=== PATIENT | female | born 1945 | race Caucasian/White ===

== ENCOUNTER 2024-04-28 18:27 | Inpatient (IN) ==
[2024-04-28 20:21] LABS: Urine Appearance Clear; Urine Bacteria Absent /HPF (Absent); Urine Bilirubin Negative (Negative); Urine Blood Trace (Negative); Urine Color Yellow; Urine Glucose 4+ (>=1000 mg/dL) (Negative); Urine Ketones 1+ (Negative); Urine Nitrite Negative (Negative); Urine Protein 1+ (>=30 mg/dL) (Negative); Urine Red Blood Cell Trace(0-2/hpf) /HPF (0-Trace); Urine Squamous Epithelial Cell Present /HPF (Absent); Urine Urobilinogen Negative (Negative); Urine White Blood Cell 3+(>20/hpf) /HPF (0-Trace)
[2024-04-28 21:47] LABS: Hematocrit 38.1 % (35-45); Hemoglobin 12.7 g/dL (11.5-14.3); Mean Corpuscular Hemoglobin 29.3 pg (27-33); Mean Corpuscular Hgb Conc 33.3 g/dL (31-36); Mean Corpuscular Volume 88.3 fL (80-97); Mean Platelet Volume 8.6 fL (7.5-11.2); Platelet Count 299 10^3/uL (150-450); Red Blood Count 4.32 10^6/uL (3.63-4.92); Red Cell Distribution Width 13.2 % (12-17)
[2024-04-28 21:58] LABS: INR 1.95 (0.85-1.14)
[2024-04-28 22:16] LABS: Albumin 3.8 g/dL (3.2-5.2); Albumin/Globulin Ratio 1.4 (1-3); Creatinine, Serum 0.79 mg/dL (0.51-0.95); Globulin 2.7 g/dL (2-4); Magnesium 2.2 mg/dL (1.9-2.7); Potassium 4.1 mmol/L (3.5-5.0); Total Bilirubin 0.8 mg/dL (0.2-1.0); Total Protein 6.5 g/dL (6.4-8.9); eGFR CKD-EPI 76.5 (>60)
[2024-04-28 22:26] LABS: ABS Basophils 0.1 10^3/uL (0.0-0.1); ABS Lymphocytes 0.9 10^3/uL (1.0-4.8); ABS Monocytes 1.2 10^3/uL (0.0-0.9); ABS Neutrophils 12.7 10^3/uL (1.5-7.6); ABS Nucleated RBC 0.01 10^3/ul; Eosinophil % 0.3 %; Lymphocyte % 5.9 %; Nucleated Red Blood Cells % 0.1 %/100WBC (0.0-0.8); RBC Morphology Normal (Normal)
[2024-04-28 22:30] LABS: TSH Ultra Thyroid Stim Horm 5.49 mcIU/mL (0.34-5.60)
[2024-04-28] MEDS: Lactated Ringers 1000 ml BAG 1,000 ML IV ONE (22:30)
[2024-04-28 22:49] LABS: C Reactive Protein 110.09 mg/L (<8.01)
[2024-04-28 23:27] LABS: High Sensitivity Troponin 1 Hr 9 pg/mL (<15)
[2024-04-28] MEDS: Iodixanol (CONTRAST) 320 MG/ML 100 ML SDV IV ONE (23:46)
[2024-04-29] MEDS: cefTRIAXone 1 gm/50 mL D5W 1 GM/50 ML BAG IV ONE (00:59)
[2024-04-29] MEDS: Furosemide 40 mg/4 ml IV VIAL IV SLOW PU ONE ×2 (03:21→16:43)
[2024-04-29 05:23] LABS: Folate 10.79 ng/mL (5.90-24.80)
[2024-04-29 06:20] LABS: Hematocrit 36.1 % (35-45); Mean Corpuscular Hemoglobin 29.2 pg (27-33); Mean Corpuscular Hgb Conc 33.2 g/dL (31-36); Mean Corpuscular Volume 88.1 fL (80-97); Mean Platelet Volume 8.6 fL (7.5-11.2); Platelet Count 290 10^3/uL (150-450); Red Cell Distribution Width 13.2 % (12-17); White Blood Count 13.4 10^3/uL (3.8-11.8)
[2024-04-29 07:06] LABS: Albumin 3.5 g/dL (3.2-5.2); Albumin/Globulin Ratio 1.4 (1-3); Calcium 8.5 mg/dL (8.6-10.3); Creatinine, Serum 0.71 mg/dL (0.51-0.95); Globulin 2.5 g/dL (2-4); Magnesium 1.9 mg/dL (1.9-2.7); Potassium 3.7 mmol/L (3.5-5.0); Total Bilirubin 0.6 mg/dL (0.2-1.0)
[2024-04-29 07:21] LABS: ABS Basophils 0.1 10^3/uL (0.0-0.1); ABS Eosinophils 0.1 10^3/uL (0.0-0.5); ABS Monocytes 1.3 10^3/uL (0.0-0.9); ABS Neutrophils 10.9 10^3/uL (1.5-7.6); ABS Nucleated RBC 0.01 10^3/ul; Eosinophil % 0.6 %; Lymphocyte % 7.8 %; Nucleated Red Blood Cells % 0.1 %/100WBC (0.0-0.8)
[2024-04-29] MEDS: Metoprolol Tartrate 5 mg VIAL 5 ml VIAL (1 mg/ml) IV ONE (08:22)
[2024-04-29] MEDS: Aspirin EC 81 mg TAB.EC (enteric coated) PO SCH (08:25)
[2024-04-29] MEDS: Cholecalciferol (VIT D3) 1,000 unit TAB PO SCH (08:27)
[2024-04-29] MEDS: Digoxin IV 0.5 MG/2 ML AMP (0.25 MG/ML) IV SLOW PU ONE (09:47)
[2024-04-29] MEDS ORDERED: Fluticasone NASAL SPRAY 50MCG 16 gm SPRAY BTL BOTH NARES PRN (11:30)
[2024-04-29] MEDS: Magnesium Sulfate 2 gm BAG 2 GM/50 ML BAG IVPB ONE (13:51)
[2024-04-29] MEDS: KCL 10 MEQ/50 ML IVPREMIX 10 MEQ/50 ML BAG IV SCH (13:52)
[2024-04-29] MEDS ORDERED: Sulfur Hexaflouride MICROSPHR 25 MG VIAL ONE (13:54)
[2024-04-29] MEDS: Sulfur Hexaflouride MICROSPHR 25 MG VIAL IV PRN (14:07)
[2024-04-29] MEDS: Enoxaparin 80 MG/0.8 ML SYR SUBCUT SCH (15:43)
[2024-04-29] MEDS: cefTRIAXone 1 gm/50 mL D5W 1 GM/50 ML BAG IV SCH (21:53)
[2024-04-30] MEDS ORDERED: cefTRIAXone 1 gm/50 mL D5W 1 GM/50 ML BAG IV SCH (01:00)
[2024-04-30 05:44] LABS: Hematocrit 32.6 % (35-45); Hemoglobin 11.1 g/dL (11.5-14.3); Mean Corpuscular Hemoglobin 29.9 pg (27-33); Mean Corpuscular Hgb Conc 34.2 g/dL (31-36); Mean Corpuscular Volume 87.5 fL (80-97); Mean Platelet Volume 8.7 fL (7.5-11.2); Platelet Count 256 10^3/uL (150-450); Red Blood Count 3.72 10^6/uL (3.63-4.92); Red Cell Distribution Width 13.2 % (12-17); White Blood Count 13.4 10^3/uL (3.8-11.8)
[2024-04-30 06:39] LABS: Calcium 8.4 mg/dL (8.6-10.3); Creatinine, Serum 0.9 mg/dL (0.51-0.95); Magnesium 2.5 mg/dL (1.9-2.7); Potassium 4.8 mmol/L (3.5-5.0); eGFR CKD-EPI 65.4 (>60)
[2024-04-30 07:15] LABS: ABS Neutrophils 11.4 10^3/uL (1.5-7.6); ABS Nucleated RBC 0.01 10^3/ul; Lymphocyte % 7.6 %
[2024-04-30] MEDS: Albuterol HFA INHALER 8 gm MDI INH PRN (08:26)
[2024-04-30] MEDS: Furosemide 40 mg/4 ml IV VIAL IV ONE (13:15)
[2024-04-30] MEDS: Metoprolol Tartrate 5 mg VIAL 5 ml VIAL (1 mg/ml) IV PRN (16:56)
[2024-04-30] MEDS: Amiodarone 400 mg TAB PO SCH (21:48)
[2024-05-01] MEDS: Enoxaparin 80 MG/0.8 ML SYR SUBCUT SCH (06:05)
[2024-05-01 07:01] LABS: Hematocrit 33.6 % (35-45); Hemoglobin 11.5 g/dL (11.5-14.3); Mean Corpuscular Hemoglobin 30.1 pg (27-33); Mean Corpuscular Hgb Conc 34.2 g/dL (31-36); Mean Corpuscular Volume 88.1 fL (80-97); Mean Platelet Volume 8.6 fL (7.5-11.2); Platelet Count 267 10^3/uL (150-450); Red Blood Count 3.82 10^6/uL (3.63-4.92); Red Cell Distribution Width 13.5 % (12-17); White Blood Count 18.7 10^3/uL (3.8-11.8)
[2024-05-01 07:15] LABS: Albumin 3.6 g/dL (3.2-5.2); Albumin/Globulin Ratio 1.4 (1-3); Calcium 8.7 mg/dL (8.6-10.3); Creatinine, Serum 1.11 mg/dL (0.51-0.95); Direct Bilirubin 0.1 mg/dL (0.03-0.18); Globulin 2.6 g/dL (2-4); Indirect Bilirubin 0.4 mg/dL (0.3-1.0); Magnesium 2.4 mg/dL (1.9-2.7); Potassium 4.3 mmol/L (3.5-5.0); Total Bilirubin 0.5 mg/dL (0.2-1.0); Total Protein 6.2 g/dL (6.4-8.9); eGFR CKD-EPI 50.9 (>60)
[2024-05-01 07:31] LABS: ABS Lymphocytes 1.7 10^3/uL (1.0-4.8); ABS Monocytes 2.1 10^3/uL (0.0-0.9); ABS Neutrophils 14.8 10^3/uL (1.5-7.6); ABS Nucleated RBC 0.03 10^3/ul; Lymphocyte % 9.3 %; Nucleated Red Blood Cells % 0.1 %/100WBC (0.0-0.8)
[2024-05-02 06:25] LABS: Hemoglobin 11.7 g/dL (11.5-14.3); Mean Corpuscular Hemoglobin 29.1 pg (27-33); Mean Corpuscular Hgb Conc 33.3 g/dL (31-36); Mean Corpuscular Volume 87.3 fL (80-97); Mean Platelet Volume 8.8 fL (7.5-11.2); Platelet Count 279 10^3/uL (150-450); Red Blood Count 4.01 10^6/uL (3.63-4.92); Red Cell Distribution Width 13.9 % (12-17); White Blood Count 17.8 10^3/uL (3.8-11.8)
[2024-05-02 06:41] LABS: Calcium 9.1 mg/dL (8.6-10.3); Creatinine, Serum 0.93 mg/dL (0.51-0.95); Magnesium 2.4 mg/dL (1.9-2.7); Potassium 4.4 mmol/L (3.5-5.0); eGFR CKD-EPI 62.9 (>60)
[2024-05-02 08:12] LABS: ABS Basophils 0.1 10^3/uL (0.0-0.1); ABS Lymphocytes 1.7 10^3/uL (1.0-4.8); ABS Monocytes 1.5 10^3/uL (0.0-0.9); ABS Neutrophils 14.5 10^3/uL (1.5-7.6); ABS Nucleated RBC 0.01 10^3/ul; Eosinophil % 0.1 %; Giant Platelets Present; Lymphocyte % 9.5 %; Nucleated Red Blood Cells % 0.1 %/100WBC (0.0-0.8)
[2024-05-02 10:44] LABS: C Reactive Protein 22.85 mg/L (<8.01)
[2024-05-02 13:35] VITALS: BP 132/74
== END 2024-05-02 15:45 | disposition home or self-care (01) | DRG 872 ==
LOC: ED 18:27 → EDHOLD 18:27 → MEDTELE 04-29 10:19 → SUATTDRO 04-29 14:00
PROVIDERS: ADMIT Internal Medicine; ATTEND Internal Medicine